=== PATIENT | male | born 1980 | race Caucasian/White ===

== ENCOUNTER 2019-05-01 10:27 | Emergency (ER) | payer BC, OTHER ==
--- NOTE | 2019-05-01 11:42 | EDM.PDOC ---
ED HPI GENERAL MEDICAL PROBLEM - General Chief Complaint: General Stated Complaint: LOW BACK PAIN Time Seen by Provider: 05/01/19 11:17 Source of Information: Reports: Patient History Limitations: Reports: No Limitations - History of Present Illness INITIAL COMMENTS - FREE TEXT/NARRATIVE: Patient presents with left low back pain that started after a work injury 7 days ago. He saw his PCP and has been taking Diclofenac and Flexeril which helped quite well. Yesterday he exacerbated the injury again at work and today had to leave work due to the pain. He is planning to continue treating with his PCP but needs a note for work today. He isn't scheduled to work for 5 days after today. The work injury was an acute muscle strain and no concern of bony pathology. No focal paresthesias or numbness. - Related Data Allergies Allergy/AdvReac Type Severity Reaction Status Date / Time No Known Allergies Allergy Verified 05/01/19 11:26 Home Meds: Home Meds Cyclobenzaprine [Flexeril] 10 mg PO BEDTIME 05/01/19 [History] Diclofenac Sodium [Voltaren] 75 mg PO BIDMEALS 05/01/19 [History] Past Medical History - Past Health History Medical/Surgical History: Denies Medical/Surgical History Musculoskeletal History: Reports: Fracture - Past Surgical History Musculoskeletal Surgical History: Reports: Other (See Below) Other Musculoskeletal Surgeries/Procedures:: left forearm fracture with surgical repair- no added metal ED ROS GENERAL - Review of Systems Review Of Systems: See Below Constitutional: Denies: Fever, Chills, Malaise, Weakness HEENT: Denies: Ear Pain, Throat Pain, Vision Change Respiratory: Denies: Shortness of Breath, Cough Cardiovascular: Denies: Chest Pain, Lightheadedness, Syncope Endocrine: Denies: Fatigue GI/Abdominal: Denies: Abdominal Pain, Diarrhea, Vomiting : Denies: Dysuria, Flank Pain Musculoskeletal: Reports: Back Pain. Denies: Neck Pain, Shoulder Pain, Arm Pain , Hand Pain, Leg Pain, Foot Pain Skin: Denies: Cyanosis, Jaundice, Mottled, Pallor, Diaphoresis Neurological: Denies: Confusion, Dizziness, Headache, Seizure, Syncope, Trouble Speaking, Difficulty Walking Psychiatric: Denies: Agitation, Anxiety, Confusion ED EXAM, GENERAL - Physical Exam Exam: See Below Exam Limited By: No Limitations General Appearance: Alert, WD/WN, No Apparent Distress Eye Exam: Bilateral Eye: EOMI, Normal Inspection, PERRL Ears: Normal External Exam, Hearing Grossly Normal Nose: Normal Inspection, No Blood Throat/Mouth: Normal Inspection, Normal Lips, Normal Voice, No Airway Compromise Head: Atraumatic, Normocephalic Neck: Normal Inspection, Full Range of Motion Respiratory/Chest: No Respiratory Distress, Lungs Clear, Normal Breath Sounds, No Accessory Muscle Use Cardiovascular: Regular Rate, Rhythm, No Murmur GI/Abdominal: No Distention Back Exam: Paraspinal Tenderness (left lumbar). No: Vertebral Tenderness Extremities: Normal Inspection, Normal Range of Motion Neurological: Alert, Oriented, Normal Cognition, No Motor/Sensory Deficits Psychiatric: Normal Affect, Normal Mood Skin Exam: Warm, Dry, Intact, Normal Color, No Rash Course - Vital Signs Last Recorded V/S: Last Vital Signs Temp 97.6 F 05/01/19 11:19 Pulse 78 05/01/19 11:19 Resp 20 05/01/19 11:19 BP 120/74 05/01/19 11:19 Pulse Ox 95 05/01/19 11:19 - Re-Assessments/Exams Free Text/Narrative Re-Assessment/Exam: 05/01/19 11:42 Discussed findings and treatment plan including specific stretches for low back strain with patient. He will follow up with his PCP and continue the treatment she initiated. Patient stable at discharge with a note for work release today. Departure - Departure Time of Disposition: 11:35 Disposition: Home, Self-Care 01 Condition: Good Clinical Impression: Low back strain Qualifiers: Encounter type: initial encounter Qualified Code(s): S39.012A - Strain of muscle, fascia and tendon of lower back, initial encounter - Discharge Information Referrals: Leilani Herrera PA-C [Primary Care Provider] - Additional Instructions: 1. Continue the Diclofenac and Flexeril as directed by your PCP. 2. If this persists or recurs, I would highly recommend physical therapy in addition to your current treatment. Sepsis Event Note - Evaluation Sepsis Screening Result: No Definite Risk - Focused Exam Vital Signs: Vital Signs Temp Pulse Resp BP Pulse Ox 05/01/19 11:19 97.6 F 78 20 120/74 95 Date Exam was Performed: 05/01/19 Time Exam was Performed: 11:35
== END 2019-05-01 12:05 | disposition home or self-care (01) ==
LOC: KA.ED 10:27
DX: S39.012A Strain of muscle, fascia and tendon of lower back, initial encounter (principal); X50.9XXA Other and unspecified overexertion or strenuous movements or postures, initial encounter; Y99.0 Civilian activity done for income or pay
CPT/HCPCS: 99283

== ENCOUNTER 2021-04-26 15:55 | Emergency (ER) | payer OTHER ==
--- NOTE | 2021-04-26 16:39 | CR ---
[id number] RAD/RAD Lumbar Spine 2-3V EXAM: RAD Lumbar Spine 2-3V INDICATION: Hurt at work pushing object. COMPARISON: None. DISCUSSION: Grade 1 L5-S1 spondylolisthesis possibly relating to pars defects. The vertebral bodies are otherwise normal in alignment. No acute fracture is identified. Mild spondylosis throughout the lumbar spine. IMPRESSION: 1. Mild lumbar spondylosis. 2. Grade 1 L5-S1 spondylolisthesis. Eliot Garcia MD 04/26/21 Thank you for allowing us to participate in the care of your patient.
[2021-04-26] MEDS ORDERED: Ketorolac 30 MG/ML SDV IM ONE (16:43)
[2021-04-26] MEDS ORDERED: Methocarbamol 500 MG Tab PO ONE (16:44)
--- NOTE | 2021-04-26 16:57 | EDM.PDOC ---
ED HPI GENERAL MEDICAL PROBLEM - General Chief Complaint: Back Pain or Injury Stated Complaint: low back pain Time Seen by Provider: 04/26/21 16:30 Source of Information: Reports: Patient History Limitations: Reports: No Limitations - History of Present Illness INITIAL COMMENTS - FREE TEXT/NARRATIVE: 40-year-old male presents to the emergency room for an injury to his low back that occurred earlier today. Patient works at the [employer] facility has done so since the age of 20. He had an event that occurred today while at work injuring his lower back. He does notice some complaints of this radiating to his left buttock and thigh and groin. He has had a similar episode of this in the past about 3 years ago. He reports the radicular leg pain was worse at its first occurrence. He was seen by the nurse at the [facility]. He was given some NSAIDs. He notices that it pain bothers him when he stands or walks better when he sits down. He denies saddle paresthesias. He denies loss of bowel or bladder control. No numbness or tingling complaints in his lower extremities. 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: NSAIDS Lower Back Pain Score (Numeric/FACES): 4 - Related Data Allergies Allergy/AdvReac Type Severity Reaction Status Date / Time No Known Allergies Allergy Verified 04/26/21 16:07 Home Meds: Home Meds Acetaminophen [Tylenol Extra Strength] 1,000 mg PO Q4H PRN 04/26/21 [History] Ibuprofen 400 mg PO Q6H PRN 04/26/21 [History] Past Medical History - Past Health History Medical/Surgical History: Denies Medical/Surgical History Musculoskeletal History: Reports: Fracture - Past Surgical History Musculoskeletal Surgical History: Reports: Other (See Below) Other Musculoskeletal Surgeries/Procedures:: left forearm fracture with surgical repair- no added metal Social & Family History - Tobacco Use Tobacco Use Status *Q: Never Tobacco User - Caffeine Use Caffeine Use: Reports: Soda - Recreational Drug Use Recreational Drug Use: No ED ROS GENERAL - Review of Systems Review Of Systems: Comprehensive ROS is negative, except as noted in HPI. ED EXAM,LOWER BACK PAIN/INJURY - Physical Exam Exam: See Below Exam Limited By: No Limitations General Appearance: Alert, WD/WN, No Apparent Distress Ears: Hearing Grossly Normal Throat/Mouth: Normal Voice Head: Atraumatic Neck: Normal Inspection Respiratory/Chest: No Respiratory Distress Extremities: Normal Inspection, Normal Range of Motion, Non-Tender Neurological: Alert, Normal Mood/Affect, Normal Dorsiflexion, Normal Plantar Flexion, Normal Reflexes, No Motor/Sensory Deficits, Oriented x 3. No: Extensor Response to Pain, Flexor Response to Pain, Withdraws to Pain, Babinski, Straight Leg Raise (L), Straight Leg Raise (R), Saddle Anesthesia, Difficulty Walking DTR - Lower Extremities: 1+: Ankle (R), Ankle (L), 2+: Knee (R), Knee (L) Psychiatric: Normal Affect, Normal Mood Skin Exam: Warm, Dry, Intact, Normal Color Course - Vital Signs Last Recorded V/S: Last Vital Signs Temp 96.9 F 04/26/21 15:58 Pulse 82 04/26/21 15:58 Resp 20 04/26/21 15:58 BP 140/89 04/26/21 15:58 Pulse Ox 98 04/26/21 15:58 - Orders/Labs/Meds Meds: Medications Discontinued Medications Generic Name Dose Route Start Last Admin Trade Name Freq PRN Reason Stop Dose Admin Ketorolac Tromethamine 30 mg 04/26/21 16:43 Ketorolac 30 Mg/Ml Sdv IM 04/26/21 16:44 ONETIME ONE Methocarbamol 1,000 mg 04/26/21 16:44 Methocarbamol 500 Mg Tab PO 04/26/21 16:45 ONETIME ONE - Radiology Interpretation Free Text/Narrative:: X-ray lumbar spine 3 views. Indication: Hurt at work pushing an object Discussion: Grade 1 L5-S1 spondylolisthesis possibly related to pars defect. The vertebral bodies are otherwise normal in alignment. No acute fracture is identified. Mild spondylosis throughout lumbar spine. Impression: 1. Mild lumbar spondylosis 2. Grade 1 L5-S1 spondylolisthesis - Re-Assessments/Exams Free Text/Narrative Re-Assessment/Exam: 04/26/21 16:57 Patient was given 30 mg IM Toradol and 1000 mg of Robaxin. Departure - Departure Time of Disposition: 17:02 Disposition: Home, Self-Care 01 Condition: Good Clinical Impression: Acute low back pain with left-sided sciatica Qualifiers: Back pain laterality: left Qualified Code(s): M54.42 - Lumbago with sciatica, left side - Discharge Information Instructions: Acute Back Pain, Adult, Sciatica Referrals: Sebastian Mac MD [Primary Care Provider] - Forms: ED Department Discharge Additional Instructions: 1. Rest 2. May use heating pack or ice for comfort 3. Toradol 10 mg every 8 hours as needed for pain. 4. Robaxin 750 mg 1 p.o. every 8 hours as needed for muscle spasms 5. If your back pain does not improve or you are experiencing radicular leg pain you will need to follow-up with primary care. You indicated that you do not have a primary care provider at this time and I would recommend referral to Austen Pardo NP at the hospital clinic. You may need to schedule an MRI of your lumbar spine if buttock and radicular leg pain become persistent. Sepsis Event Note (ED) - Evaluation Sepsis Screening Result: No Definite Risk - Focused Exam Vital Signs: Vital Signs Temp Pulse Resp BP Pulse Ox 04/26/21 15:58 96.9 F 82 20 140/89 98 - Assessment/Plan Assessment:: Acute left-sided low back pain with left sciatica Plan: 1. Rest 2. May use heating pack or ice for comfort 3. Toradol 10 mg every 8 hours as needed for pain. 4. Robaxin 750 mg 1 p.o. every 8 hours as needed for muscle spasms 5. If your back pain does not improve or you are experiencing radicular leg pain you will need to follow-up with primary care. You indicated that you do not have a primary care provider at this time and I would recommend referral to Austen Pardo NP at the hospital clinic. You may need to schedule an MRI of your lumbar spine if buttock and radicular leg pain become persistent.
== END 2021-04-26 17:00 | disposition home or self-care (01) ==
LOC: KA.ED 15:55
DX: M54.42 Lumbago with sciatica, left side (principal)
CPT/HCPCS: 72100; 96372; 99283; 99283-25; A9270-GY; J1885